=== PATIENT | female | born 1955 | race Caucasian/White ===

== ENCOUNTER 2017-01-17 09:52 | Emergency (ER) | payer OTHER ==
[~2017-01-17] VITALS: Ht 182.9 cm; Wt 88.0 kg
[~2017-01-17 09:52] MED LIST: COLACE100 M1 PO; COUMADIN5 M2 PO; FERROUS SULFAT325 M3 PO; MACROBID 100 M100 MG PO; MIRALAX17 G1 PO; MS CONTIN15 M2 PO; MULTIVITAMINS1 EAC9 PO; PERCOCET 5-3251 EACH PO; PROTONIX40 M3 PO; TRAMADOL HCL50 M1 PO; TUMS200 MG PO; VOLTAREN100 GM
--- NOTE | 2017-01-17 10:44 | RADIOLOGY REPORT ---
EXAMINATION: XR ANKLE, LEFT CLINICAL INFORMATION: Pain and swelling after injury. Evaluate for fracture. COMPARISON: None TECHNIQUE: AP, lateral, and mortise views of the left ankle. FINDINGS: Moderate soft tissue swelling of the anterolateral ankle. The talar dome is well-positioned within the intact ankle mortise. No acute fracture or subluxation. The tibiotalar joint space and tibiofibular syndesmotic space are normal. Incidentally noted are calcaneal enthesophytes. The visualized bones of the proximal foot are intact. IMPRESSION: 1. Posttraumatic soft tissue swelling of the anterolateral ankle. 2. No evidence of acute fracture or malalignment.
--- NOTE | 2017-01-17 10:52 | ED ANKLE/FOOT INJURY COMPLAINT ---
History of Present Illness General Chief Complaint: Foot or Ankle Injury Stated Complaint: LT ANKLE PAIN Source: patient Exam Limitations: no limitations Vital Signs & Intake/Output Vital Signs & Intake/Output Vital Signs Date Time Temp Pulse Resp B/P B/P Pulse O2 O2 Flow FiO2 Mean Ox Delivery Rate 01/17 1112 98.3 71 18 144/76 Room Air 01/17 0957 98.5 67 16 150/82 96 Room Air Allergies Coded Allergies: Penicillins (UNKNOWN 05/29/16) Sulfa (Sulfonamide Antibiotics) (UNKNOWN 05/29/16) nitroglycerin (UNKNOWN 05/29/16) adhesive tape (BLISTERS 05/29/16) Triage Note: PT STATES SHE WENT TO GO TO AND HER LEFT LEG WAS ASLEEP AND HER LEFT ANKLE TWISTED IN HAND SHE HEARD TEARING. Triage Nurses Notes Reviewed? yes Occurred: just prior to arrival Duration: day(s): (1) Severity: moderate Severity Numbers: 6 Pain/Injury Location: Left: Ankle. Method of Injury: twisted Modifying Factors: Improves With: immobilization. Worsens With: movement. Associated Symptoms: swelling HPI: Patient is a 61-year-old female with history of bilateral knee replacement presenting to the emergency Department chief complaint of left ankle pain, swelling after she twisted it this morning while getting out of bed. Pain is achy throbbing worse with ambulation and palpation. She has been applying ice with some relief and swelling. Decided to come in for evaluation to make sure she did not break her ankle. Denies any radiation of the pain. No numbness or tingling. Denies any head injury or LOC. No calf pain. No history of ankle fracture in the past. Denies taking any medication to help with symptoms. Denies any nausea vomiting fevers chills chest pain or shortness of breath. (CHELSEA SMITH,DICK) Reconcile Medications Pantoprazole Sodium (Protonix) 40 MG TABLET.DR 40 MG PO D REFLUX (Reported) Tramadol HCl 50 MG TABLET 1 TAB PO BIDP PRN PAIN (Reported) Warfarin Sodium (Coumadin) 5 MG TABLET 1 TAB PO DAILY BLOOD THINNER DOSE FOR INR 2-3 (SANDRA WARE,TAISHA Holden) Past History Travel History Traveled to [place] past 21 day No Medical History Any Pertinent Medical History? 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 No (DICK TIPTON) Review of Systems Review of Systems Constitutional: Reports: no symptoms. Comments Review of systems: See HPI, All other systems negative. Constitutional, no chills fever or weight loss HEENT: No visual changes no sore throat no congestion Cardiovascular: No chest pain Skin, no jaundice no rashes Respiratory: No dyspnea cough sputum or hemoptysis GI: No nausea no vomiting Muscle skeletal: no back pain, no neck pain, Neurologic: No numbness Psych: No stress anxiety Immunology: No splenectomy or history of AIDS (DICK TIPTON) Physical Exam Physical Exam General Appearance: well developed/nourished, no apparent distress, alert, awake , comfortable Leg/Knee/Thigh Left: swelling, limited range of motion Comments: Well-developed well-nourished person in no acute distress HEENT: Pupils equally round and reactive to light and accommodation. Nose is atraumatic. Neck: Normal inspection Cardiovascular: normal JVP Respiratory: No respiratory distress. Extremity: Left Ankle with moderate tenderness laterally over the lateral ligaments. No bony tenderness. No medial tenderness. Range of motion is near full but somewhat limited due to pain. No instability is noted. Skin is intact, mild swelling and ecchymosis laterally. The foot is neurovascularly intact with sensation and motor grossly intact. There is no foot tenderness or fifth metatarsal tenderness. Able to move all toes. Neuro: Alert oriented x3, motor sensory normal in the lower extremities bilaterally. Skin: No appreciable rash on exposed skin, skin is warm and dry. Psych: Mood and affect is normal, memory and judgment is normal. (DICK TIPTON) Progress Differential Diagnosis: fracture, dislocation, sprain, contusion Plan of Care: Orders Procedure Date/time Status Durable Medical Equipment 01/17 1053 Active Diagnostic Imaging: Viewed by Me: Radiology Read. Discussed w/RAD: Radiology Read. Radiology Impression: PATIENT: PEDRO PICKETT PRESENT AGE: 61 PATIENT ACCOUNT NO: [id number] : 54 LOCATION: [facility] ORDERING PHYSICIAN: ASTRID VARGAS DO (TBS) SERVICE DATE: 01/17/17 EXAM TYPE: RAD - XRY-ANKLE 3 OR MORE VIEWS L EXAMINATION: XR ANKLE, LEFT CLINICAL INFORMATION: Pain and swelling after injury. Evaluate for fracture. COMPARISON: None TECHNIQUE: AP, lateral, and mortise views of the left ankle. FINDINGS: Moderate soft tissue swelling of the anterolateral ankle. The talar dome is well- positioned within the intact ankle mortise. No acute fracture or subluxation. The tibiotalar joint space and tibiofibular syndesmotic space are normal. Incidentally noted are calcaneal enthesophytes. The visualized bones of the proximal foot are intact. IMPRESSION: 1. Posttraumatic soft tissue swelling of the anterolateral ankle. 2. No evidence of acute fracture or malalignment. DICTATED BY: SHANTELLE PRETTY MD DATE/TIME DICTATED:01/17/171038 FINANCE ASSOCIATE:SANTOS DATE/TIME TRANSCRIBED:01/17/171038 CONFIDENTIAL, DO NOT COPY WITHOUT APPROPRIATE AUTHORIZATION. <Electronically signed in Other Vendor System> SIGNED BY: SHANTELLE PRETTY MD 01/17/17 1044 Comments: Patient declines pain medication on arrival. She was placed in Aircast. Given crutches. She'll follow up with orthopedic. Patient nontoxic. Neurovascularly intact. X-rays negative. (DICK TIPTON) Departure Departure Time of Disposition: 1050 Disposition: HOME OR SELF CARE Condition: Stable Clinical Impression Primary Impression: Ankle sprain Qualifiers: Encounter type: initial encounter Involved ligament of ankle: unspecified ligament Laterality: left Qualified Code: S93.402A - Sprain of unspecified ligament of left ankle, initial encounter Referrals: LISANDRO WARE,KARINA Levy (PCP/Family) PATRICIA WARE,PRETTY Cain Additional Instructions: Rest, ice and elevate affected extremity. Take [id number] Motrin or Tylenol as directed. Use crutches for support over the next 2-3 days. Wear ankle brace for support. Return for worsening symptoms or concerns. If symptoms do not resolve in the next week or so he can follow up with orthopedics. Departure Forms: Customer Survey General Discharge Information (DICK TIPTON) PA/CYLINDER DIE MACHINE OPERATOR Co-Sign Statement Statement: ED Attending supervision documentation- [] I saw and evaluated the patient. I have also reviewed all the pertinent lab results and diagnostic results. I agree with the findings and the plan of care as documented in the PA's/CYLINDER DIE MACHINE OPERATOR's documentation. [X] I have reviewed the ED Record and agree with the PA's/CYLINDER DIE MACHINE OPERATOR's documentation. [] Additions or exceptions (if any) to the PAs/CYLINDER DIE MACHINE OPERATOR's note and plan are summarized below: [] (SANDRA WARE,TAISHA Holden) Procedures Splinting Location: left ankle Manual Alignment Performed: No Pre-Made Type: aircast Splint: sugar-tong Splint Applied By: splint applied by other (nursing) Pre-Proc Neuro Vasc Exam: normal Post-Proc Neuro Vasc Exam: normal Progress: Tolerated procedure well. (DICK TIPTON)
[2017-01-17 11:12] VITALS: BP 144/76
[2017-01-17] MEDS ORDERED: TRAMADOL HCL50 M1 PO (11:27)
== END 2017-01-17 11:40 ==
LOC: ERH 09:52
DX: S93.402A Sprain of unspecified ligament of left ankle, initial encounter (principal); X50.9XXA Other and unspecified overexertion or strenuous movements or postures, initial encounter; Y93.89 Activity, other specified; Y92.9 Unspecified place or not applicable
CPT/HCPCS: 73610-LT